=== PATIENT | female | born 1940 | race African-American/Black ===

== ENCOUNTER 2018-09-20 00:16 | Emergency (ER) | payer OTHER ==
[~2018-09-20] VITALS: Ht 160 cm; Wt 68.0 kg
[2018-09-20] MEDS ORDERED: KETOROLAC 30MG/ML VIAL IV STA (01:43)
[2018-09-20] MEDS ORDERED: FAMOTIDINE 20MG/2ML VIAL IV STA (01:43)
[2018-09-20] MEDS ORDERED: ONDANSETRON HCL 4MG/2ML INJ IV STA (01:43)
[2018-09-20 01:53] LABS: BASOPHILS % 0.7 % (0.0-2.0); EOSINOPHILS % 2.1 % (0.0-5.0); HEMOGLOBIN. 12.2 g/dL (12.0-16.0); LYMPHOCYTES % 25.8 % (20.0-50.0); MEAN CORPUSCULAR VOLUME 91.2 fL (81.0-99.0); MEAN PLATELET VOLUME 9.7 fl (7.4-10.4); MONOCYTES % 8.5 % (2.0-8.0); NEUTROPHILS % 62.9 % (40.0-76.0); PLATELET 172 x1000/uL (130-400); RED BLOOD CELL COUNT 3.94 mill/uL (4.2-5.4); RED CELL DISTRIBUTION WIDTH 14.4 % (11.6-14.6)
[2018-09-20 01:54] LABS: CHLORIDE 112 mEq/L (98-107)
[2018-09-20] MEDS ORDERED: DIATR MEGLU/DIATRIZOATE SOLN 30ML ONE (02:21)
[2018-09-20] MEDS ORDERED: IOHEXOL-300 100 ML BOTTLE ONE (06:00)
[2018-09-20 06:08] VITALS: BP 151/70
== END 2018-09-20 06:10 | disposition home or self-care (01) ==
LOC: ER 00:16
DX: R10.9 Unspecified abdominal pain (principal); I12.9 Hypertensive chronic kidney disease with stage 1 through stage 4 chronic kidney disease, or unspecified chronic kidney disease; N18.9 Chronic kidney disease, unspecified; E11.9 Type 2 diabetes mellitus without complications
CPT/HCPCS: 36415; 70450; 71045; 74177; 80053; 83605; 83690; 84484; 85025; 93005; 96374; 96375; 99284; J1885; J2405; J3490; Q9963; Q9967

== ENCOUNTER 2019-01-14 16:26 | Emergency (ER) | payer OTHER, MEDICAID ==
[~2019-01-14] VITALS: Ht 157.5 cm; Wt 50.0 kg
[2019-01-14 17:19] LABS: EOSINOPHILS % 1.8 % (0.0-5.0); HEMATOCRIT. 34.3 % (36.0-48.0); HEMOGLOBIN. 11.6 g/dL (12.0-16.0); LYMPHOCYTES % 20.3 % (20.0-50.0); MEAN CORPUSCULAR HEMOGLOBIN 30.9 pg (28.0-32.0); MEAN CORPUSCULAR VOLUME 91.3 fL (81.0-99.0); MEAN PLATELET VOLUME 9.7 fl (7.4-10.4); MONOCYTES % 7.2 % (2.0-8.0); NEUTROPHILS % 69.7 % (40.0-76.0); PLATELET 211 x1000/uL (130-400); RED BLOOD CELL COUNT 3.75 mill/uL (4.2-5.4)
[2019-01-14 17:21] LABS: PROTHROMBIN TIME 10.2 sec (9.6-11.0)
[2019-01-14 17:32] LABS: CHLORIDE 108 mEq/L (98-107)
[2019-01-14] MEDS ORDERED: SODIUM CHLORIDE 0.9% 1,000 ML IV ONE (17:54)
[2019-01-14] MEDS ORDERED: ASPIRIN 325MG EC TABLET PO ONE (18:45)
[2019-01-14 23:07] VITALS: BP 104/57
== END 2019-01-14 23:35 | disposition short-term general hospital (02) ==
LOC: ER 16:26 → EDBEDREQ 18:16 → CANRESERV 20:23 → ENRESERV 20:23 → CANBEDREQ 23:09 → ER 23:35 → SUPCPDRO 01-15 10:33
DX: I63.9 Cerebral infarction, unspecified (principal); R53.1 Weakness; N17.9 Acute kidney failure, unspecified; D64.9 Anemia, unspecified; I25.10 Atherosclerotic heart disease of native coronary artery without angina pectoris; I11.9 Hypertensive heart disease without heart failure; E11.9 Type 2 diabetes mellitus without complications; Z95.0 Presence of cardiac pacemaker; Z98.84 Bariatric surgery status
CPT/HCPCS: 36415; 70450; 71045; 80053; 83880; 84484; 85025; 85610; 93005; 96360; 96361; 99291; J7030

== ENCOUNTER 2020-12-28 02:20 | Inpatient (IN) | payer OTHER, MEDICAID ==
[~2020-12-28] VITALS: Ht 152.4 cm; Wt 45.4 kg
[~2020-12-28 02:20] MED LIST: ALEN70TA79 MT; AMLO5TAB88 MT; ASPI-1497 MT; ATOR40TA70 MT; FERR325T6 MT; HYDR12.54 MT; OMEP40CA12 MT; OXYB5TAB17 MT; SODI650T MT; SULF1TAB47 MT
[2020-12-28] MEDS ORDERED: MORPHINE SULFATE 4 MG/ML CPJ (NOT FOR IM USE) IV ONE (03:00)
[2020-12-28 03:35] LABS: BASOPHILS % 0.7 % (0.0-2.0); HEMATOCRIT. 31.9 % (36.0-48.0); HEMOGLOBIN. 10.9 g/dL (12.0-16.0); LYMPHOCYTES % 11.6 % (20.0-50.0); MEAN CORPUSCULAR VOLUME 91.2 fL (81.0-99.0); MEAN PLATELET VOLUME 9.9 fl (7.4-10.4); MONOCYTES % 6.5 % (2.0-8.0); NEUTROPHILS % 80.2 % (40.0-76.0); PLATELET 202 x1000/uL (130-400); RED CELL DISTRIBUTION WIDTH 14.2 % (11.6-14.6)
[2020-12-28 03:41] LABS: CHLORIDE 115 mEq/L (98-107)
[2020-12-28 03:42] LABS: PROTHROMBIN TIME 10.8 sec (9.6-11.0)
[2020-12-28] MEDS ORDERED: PIPERACILLIN/TAZOBACTAM 3.375GM/50ML PREMIX IV ONE (04:45)
[2020-12-28] MEDS ORDERED: PIPERACILLIN/TAZ 3.375G PREMIX 50 ML IV NR (05:00)
[2020-12-28] MEDS ORDERED: MINERAL OIL ENEMA 133ML PR NR (05:30)
[2020-12-28] MEDS ORDERED: NA PHOS,M-B/NA PHOS,DI-BA ENEMA 118ML PR PRN (12:00)
[2020-12-28] MEDS ORDERED: DIPHENHYDRAMINE 50MG/ML VIAL IV PRN (12:00)
[2020-12-28] MEDS ORDERED: ACETAMINOPHEN 325MG TABLET PO PRN (12:00)
[2020-12-28] MEDS ORDERED: CLONIDINE 0.1MG TABLET PO PRN (12:00)
[2020-12-28] MEDS ORDERED: MAGNESIUM/ALUMINUM HYDROXIDE/SIMETHICONE 30ML UDC PO PRN (12:00)
[2020-12-28] MEDS ORDERED: MORPHINE SULFATE 2 MG/ML CPJ (NOT FOR IM USE) IV PRN (12:00)
[2020-12-28] MEDS ORDERED: HYDROCODONE/ACETAMINOPHEN 5/325MG TABLET PO PRN (12:00)
[2020-12-28] MEDS ORDERED: GUAIFENESIN 200MG/10ML SUGAR FREE UDC PO PRN (12:00)
[2020-12-28] MEDS ORDERED: DOCUSATE SODIUM 100MG CAPSULE PO PRN (12:00)
[2020-12-28] MEDS ORDERED: PIPERACILLIN/TAZOBACTAM 3.375 G in DEXTROSE 5% WATER 50 ML IV SCH (12:00)
[2020-12-28] MEDS ORDERED: ONDANSETRON HCL 4MG/2ML INJ IV PRN (12:00)
[2020-12-28] MEDS ORDERED: IPRATROPIUM/ALBUTEROL 0.5-3(2.5)MG/3ML NEB NEB PRN (12:00)
[2020-12-28] MEDS ORDERED: LORAZEPAM 0.5MG TABLET PO PRN (12:00)
[2020-12-28] MEDS ORDERED: NALOXONE HCL 0.4MG/ML VIAL IV PRN (12:15)
[2020-12-28] MEDS ORDERED: LACTULOSE 20G/30ML UDC PO NR (12:30)
[2020-12-28] MEDS: ENOXAPARIN 30MG/0.3ML SYR SUBCUT SCH (13:00)
[2020-12-28] MEDS: DEXT 5%/0.45% NACL 1000ML 1,000 ML IV SCH (13:01)
[2020-12-28] MEDS: FAMOTIDINE 20MG/2ML VIAL IV SCH (13:01)
[2020-12-28] MEDS: PIPERACILLIN/TAZOBACTAM 2.25G in DEXTROSE 5% WATER 50ML IV SCH ×2 (14:16→21:35)
[2020-12-28 15:13] LABS: BASOPHILS % 0.7 % (0.0-2.0); EOSINOPHILS % 1.9 % (0.0-5.0); HEMATOCRIT. 31.2 % (36.0-48.0); HEMOGLOBIN. 10.5 g/dL (12.0-16.0); LYMPHOCYTES % 20.7 % (20.0-50.0); MEAN CORPUSCULAR HEMOGLOBIN 30.9 pg (28.0-32.0); MEAN CORPUSCULAR VOLUME 91.9 fL (81.0-99.0); MEAN PLATELET VOLUME 9.9 fl (7.4-10.4); MONOCYTES % 7.4 % (2.0-8.0); NEUTROPHILS % 69.3 % (40.0-76.0); PLATELET 191 x1000/uL (130-400); RED BLOOD CELL COUNT 3.39 mill/uL (4.2-5.4); RED CELL DISTRIBUTION WIDTH 14.2 % (11.6-14.6)
[2020-12-28 15:20] LABS: CHLORIDE 113 mEq/L (98-107)
[2020-12-28 15:29] LABS: CREATINE KINASE 47 IU/L (26-192)
[2020-12-28 15:30] LABS: CREATINE KINASE MB FRACTION < 1.0 ng/mL (0.5-3.6)
[2020-12-28 23:30] VITALS: BP 159/78
[2020-12-29] MEDS: PIPERACILLIN/TAZOBACTAM 2.25G in DEXTROSE 5% WATER 50ML IV SCH ×3 (02:31→15:23)
[2020-12-29 04:00] VITALS: BP 156/70
[2020-12-29] MEDS: DEXT 5%/0.45% NACL 1000ML 1,000 ML IV SCH (05:29)
[2020-12-29 08:00] VITALS: BP 157/84
[2020-12-29 08:12] LABS: BASOPHILS % 0.6 % (0.0-2.0); EOSINOPHILS % 1.9 % (0.0-5.0); HEMATOCRIT. 32.4 % (36.0-48.0); HEMOGLOBIN. 10.7 g/dL (12.0-16.0); LYMPHOCYTES % 12.5 % (20.0-50.0); MEAN CORPUSCULAR HEMOGLOBIN 30.3 pg (28.0-32.0); MEAN CORPUSCULAR VOLUME 91.9 fL (81.0-99.0); MEAN PLATELET VOLUME 10.2 fl (7.4-10.4); MONOCYTES % 8.7 % (2.0-8.0); NEUTROPHILS % 76.3 % (40.0-76.0); PLATELET 209 x1000/uL (130-400); RED BLOOD CELL COUNT 3.52 mill/uL (4.2-5.4); RED CELL DISTRIBUTION WIDTH 14.2 % (11.6-14.6)
[2020-12-29 08:25] LABS: CHLORIDE 111 mEq/L (98-107)
[2020-12-29 08:33] LABS: LDL CHOLESTEROL 49 mg/dL (5-100)
[2020-12-29 08:34] LABS: CREATINE KINASE 55 IU/L (26-192)
[2020-12-29 08:35] LABS: HDL CHOLESTEROL 62 mg/dL (40-59); T4 FREE 1.12 ng/dL (0.76-1.46)
[2020-12-29 08:39] LABS: CREATINE KINASE MB FRACTION < 1.0 ng/mL (0.5-3.6)
[2020-12-29] MEDS: FAMOTIDINE 20MG/2ML VIAL IV SCH (08:56)
[2020-12-29] MEDS ORDERED: LACTULOSE 20G/30ML UDC PO NR (11:30)
[2020-12-29 12:00] VITALS: BP 144/73
[2020-12-29] MEDS: ENOXAPARIN 30MG/0.3ML SYR SUBCUT SCH (12:00)
[2020-12-29 12:40] LABS: BASOPHILS % 0.5 % (0.0-2.0); EOSINOPHILS % 2.2 % (0.0-5.0); HEMATOCRIT. 33.1 % (36.0-48.0); HEMOGLOBIN. 11.4 g/dL (12.0-16.0); LYMPHOCYTES % 11.7 % (20.0-50.0); MEAN CORPUSCULAR HEMOGLOBIN 31.4 pg (28.0-32.0); MEAN CORPUSCULAR VOLUME 91.4 fL (81.0-99.0); MEAN PLATELET VOLUME 9.9 fl (7.4-10.4); MONOCYTES % 8.1 % (2.0-8.0); NEUTROPHILS % 77.5 % (40.0-76.0); PLATELET 215 x1000/uL (130-400); RED BLOOD CELL COUNT 3.62 mill/uL (4.2-5.4)
[2020-12-29 16:00] VITALS: BP 146/71
[2020-12-29] MEDS ORDERED: DOCU-138 MT (16:50)
[2020-12-29] MEDS ORDERED: LEVO250T58 MT (16:52)
[2020-12-29 17:42] VITALS: BP 144/73
== END 2020-12-29 19:02 | disposition home or self-care (01) | DRG 394 ==
LOC: ER 02:20 → EDBEDREQSVC 07:06 → CANRESERV 11:41 → ENRESERV 11:41 → SUPCPDRO 11:55 → EDBEDREQSVC 12:08 → ENRESERV 20:13 → 7EST 22:44
PROVIDERS: ADMIT Internal Medicine; ATTEND Internal Medicine
DX: K43.9 Ventral hernia without obstruction or gangrene (principal); N39.0 Urinary tract infection, site not specified; K59.00 Constipation, unspecified; K80.20 Calculus of gallbladder without cholecystitis without obstruction; D64.9 Anemia, unspecified; D72.829 Elevated white blood cell count, unspecified; E11.22 Type 2 diabetes mellitus with diabetic chronic kidney disease; E87.5 Hyperkalemia; F03.90 Unspecified dementia, unspecified severity, without behavioral disturbance, psychotic disturbance, mood disturbance, and anxiety; I12.9 Hypertensive chronic kidney disease with stage 1 through stage 4 chronic kidney disease, or unspecified chronic kidney disease; Z20.822 Contact with and (suspected) exposure to COVID-19; K44.9 Diaphragmatic hernia without obstruction or gangrene; N18.9 Chronic kidney disease, unspecified; Z79.899 Other long term (current) drug therapy; Z86.73 Personal history of transient ischemic attack (TIA), and cerebral infarction without residual deficits; Z95.0 Presence of cardiac pacemaker
CPT/HCPCS: 36415; 71045; 74018; 74176; 80048; 80053; 80061; 82550; 82553; 83605; 84145; 84439; 84443; 84484; 85025; 87426; 93005; 97162; 99285; J1650; J2270; J2543; J3490; J7060

== ENCOUNTER 2022-03-26 07:30 | Inpatient (IN) | payer OTHER, MEDICAID ==
[~2022-03-26] VITALS: Ht 157.5 cm; Wt 50.8 kg
[~2022-03-26 07:30] MED LIST changes: +DOCU-138 MT; +LEVO250T74 MT; -OMEP40CA12 MT; +OMEP40CA20 MT; -SULF1TAB47 MT
[2022-03-26 09:04] LABS: BASOPHILS % 0.5 % (0.0-2.0); EOSINOPHILS % 1.8 % (0.0-5.0); HEMATOCRIT. 35.4 % (36.0-48.0); HEMOGLOBIN. 11.5 g/dL (12.0-16.0); LYMPHOCYTES % 16.2 % (20.0-50.0); MEAN CORPUSCULAR HEMOGLOBIN 31.2 pg (28.0-32.0); MEAN CORPUSCULAR VOLUME 96.1 fL (81.0-99.0); MEAN PLATELET VOLUME 9.9 fl (7.4-10.4); NEUTROPHILS % 73.5 % (40.0-76.0); PLATELET 187 x1000/uL (130-400); RED BLOOD CELL COUNT 3.68 mill/uL (4.2-5.4); RED CELL DISTRIBUTION WIDTH 14.5 % (11.6-14.6)
[2022-03-26 09:12] LABS: CHLORIDE 115 mEq/L (98-107)
[2022-03-26 09:23] LABS: CLARITY URINE CLEAR (CLEAR); COLOR URINE YELLOW (YELLOW); SPECIFIC GRAVITY URINE 1.015 (1.005-1.030)
[2022-03-26 09:25] LABS: KETONES URINE NEGATIVE (NEGATIVE); LEUKOCYTE ESTERASE URINE NEGATIVE (NEGATIVE); NITRITE URINE NEGATIVE (NEGATIVE); OCCULT BLOOD URINE TRACE (NEGATIVE); PROTEIN URINE 2+ (NEGATIVE); UROBILINOGEN URINE 0.2 E.U./dL (0.2-1.0)
[2022-03-26 10:04] LABS: PROTHROMBIN TIME 10.7 sec (9.6-11.0)
[2022-03-26 12:00] VITALS: BP 141/79
[2022-03-26 13:12] VITALS: BP 156/70
[2022-03-26] MEDS ORDERED: ONDANSETRON HCL 4MG/2ML INJ IV PRN (13:45)
[2022-03-26] MEDS ORDERED: IPRATROPIUM/ALBUTEROL 0.5-3(2.5)MG/3ML NEB HHN PRN (13:45)
[2022-03-26 16:00] VITALS: BP 156/70
[2022-03-26 16:52] LABS: CREATINE KINASE MB FRACTION 1.7 ng/mL (0.5-3.6)
[2022-03-26] MEDS: DEXT 5%/0.45% NACL 1000ML 1,000 ML IV SCH (18:37)
[2022-03-26] MEDS: ENOXAPARIN 30MG/0.3ML SYR SUBCUT SCH (18:40)
[2022-03-26 20:00] VITALS: BP 140/70
[2022-03-26 23:34] LABS: CREATINE KINASE MB FRACTION 1.4 ng/mL (0.5-3.6)
[2022-03-27] VITALS: BP 144/65
[2022-03-27 04:00] VITALS: BP 135/65
[2022-03-27] MEDS: DEXT 5%/0.45% NACL 1000ML 1,000 ML IV SCH ×3 (04:15→23:20)
[2022-03-27 08:00] VITALS: BP 141/68
[2022-03-27] MEDS ORDERED: INFLUENZA VACCINE 05/PF 0.5 ML SYRINGE IM ONE (09:00)
[2022-03-27] MEDS: ACETAMINOPHEN 325MG TABLET PO PRN (10:07)
[2022-03-27 12:00] VITALS: BP 141/74
[2022-03-27] MEDS ORDERED: PNEUMOCOCCAL 23-VAL P-SAC VAC 0.5 ML IM ONE (12:00)
[2022-03-27 16:00] VITALS: BP 144/67
[2022-03-27 16:38] LABS: BASOPHILS % 0.3 % (0.0-2.0); EOSINOPHILS % 1.6 % (0.0-5.0); HEMOGLOBIN. 10.6 g/dL (12.0-16.0); LYMPHOCYTES % 20.2 % (20.0-50.0); MEAN CORPUSCULAR HEMOGLOBIN 31.7 pg (28.0-32.0); MEAN CORPUSCULAR VOLUME 95.3 fL (81.0-99.0); MEAN PLATELET VOLUME 10.2 fl (7.4-10.4); MONOCYTES % 7.2 % (2.0-8.0); NEUTROPHILS % 70.7 % (40.0-76.0); PLATELET 178 x1000/uL (130-400); RED BLOOD CELL COUNT 3.35 mill/uL (4.2-5.4); RED CELL DISTRIBUTION WIDTH 14.2 % (11.6-14.6)
[2022-03-27 16:47] LABS: CHLORIDE 115 mEq/L (98-107)
[2022-03-27] MEDS: ENOXAPARIN 30MG/0.3ML SYR SUBCUT SCH (17:39)
[2022-03-27] MEDS ORDERED: LACTULOSE 20G/30ML UDC PO NR (18:00)
[2022-03-27 20:00] VITALS: BP 128/67
[2022-03-27] MEDS: DOCUSATE SODIUM 100MG CAPSULE PO PRN (21:42)
[2022-03-28] VITALS (8 sets, daily range): BP systolic 138–160; BP diastolic 66–91
[2022-03-28] MEDS: ACETAMINOPHEN 325MG TABLET PO PRN (08:07)
[2022-03-28] MEDS: DOCUSATE SODIUM 100MG CAPSULE PO PRN (08:08)
[2022-03-28] MEDS: ENOXAPARIN 30MG/0.3ML SYR SUBCUT SCH (15:08)
[2022-03-28] MEDS ORDERED: DOCUSATE SODIUM 100MG CAPSULE PO NR (15:30)
[2022-03-28] MEDS ORDERED: CLONIDINE 0.1MG TABLET PO NR (15:45)
[2022-03-28] MEDS: DEXT 5%/0.45% NACL 1000ML 1,000 ML IV SCH (18:55)
== END 2022-03-28 20:14 | disposition home or self-care (01) | DRG 71 ==
LOC: ER 07:30 → EDBEDREQ 09:53 → EDBEDREQTM 09:53 → EDBEDREQSVC 09:53 → 8WST 10:41 → EDBEDREQTM 10:50 → EDBEDREQ 10:50 → ENRESERV 11:37
PROVIDERS: ADMIT Internal Medicine; ATTEND Internal Medicine
DX: G93.40 Encephalopathy, unspecified (principal); E87.20 Acidosis, unspecified; E11.9 Type 2 diabetes mellitus without complications; F03.90 Unspecified dementia, unspecified severity, without behavioral disturbance, psychotic disturbance, mood disturbance, and anxiety; I10 Essential (primary) hypertension; K82.8 Other specified diseases of gallbladder; Z86.73 Personal history of transient ischemic attack (TIA), and cerebral infarction without residual deficits; E78.5 Hyperlipidemia, unspecified
CPT/HCPCS: 36415; 71045; 74176; 80053; 81003; 82550; 82553; 82962; 83605; 84145; 84484; 85025; 90686; 92610; 93005; 97161; 99285; C1893; J1650